=== PATIENT | female | born 1995 | race Asian ===

== ENCOUNTER 2023-07-08 18:06 | Inpatient (IN) | payer BC ==
[~2023-07-08 18:06] MED LIST: Bupivacaine 0.25% HCL 30 ML VIAL ONE
[2023-07-08] MEDS ORDERED: Promethazine HCl 25 MG/ML VIAL IM PRN (18:07)
[2023-07-08] MEDS ORDERED: Oxytocin 30 units/NS 500 ML 500 ML IV SCH (18:07)
[2023-07-08] MEDS ORDERED: hydrALAZINE 20 MG/ML VIAL SLOW IVP PRN (18:07)
[2023-07-08] MEDS ORDERED: Misoprostol 200 MCG TAB PR PRN (18:07)
[2023-07-08] MEDS ORDERED: Lactated Ringer's 1,000 ML IV SCH (18:07)
[2023-07-08] MEDS ORDERED: Carboprost 250 MCG/ML AMP IM PRN (18:07)
[2023-07-08] MEDS ORDERED: Acetaminophen 500 MG TAB PO PRN (18:07)
[2023-07-08] MEDS ORDERED: Diphenoxylate HCl/Atropine Tablet PO PRN ×2 (18:07)
[2023-07-08] MEDS ORDERED: Zolpidem Tartrate 5 MG TAB PO PRN (18:07)
[2023-07-08] MEDS ORDERED: Tranexamic Acid 1,000 MG/10 ML VIAL IVP PRN (18:07)
[2023-07-08] MEDS ORDERED: Lidocaine 1% (PF) 30 ML VIAL SC PRN (18:07)
[2023-07-08] MEDS ORDERED: Methylergonovine 0.2 MG/ML VIAL IM PRN (18:07)
[2023-07-08] MEDS ORDERED: HYDROcodone/Acetaminophen 5/325 mg Tablet PO PRN ×2 (18:07)
[2023-07-08 18:26] VITALS: BMI 23.8
[2023-07-08] MEDS: Misoprostol 100 MCG TAB VAG SCH (18:50)
[2023-07-08 19:22] LABS: Hematocrit 35.7 % (34.9-44.5); Hemoglobin 12.7 g/dL (12.0-15.5); Mean Corpuscular HGB CONC 35.6 g/dL (32.0-36.0); Mean Corpuscular Hemoglobin 31.8 pg (27.0-33.0); Mean Corpuscular Volume 89.3 fl (81.6-98.3); Platelet Count 237 10x3/uL (150-450); RBC Distribution Width 12.2 % (11.5-14.5); White Blood Cell (WBC) Count 9.2 10x3/uL (3.5-10.5)
[2023-07-08 19:45] LABS: HBSAg Index 0.22 S/CO (0-0.99); Hep B Surf Ag - L&D Non-Reactive S/CO (NonReactive)
[2023-07-08 19:46] LABS: Syphilis Antibody Nonreactive (Nonreactive); Syphilis Antibody Index 0.06 S/CO (<1.00 Non-Reactive)
[2023-07-09] MEDS: Ondansetron PF 4 MG/2 ML Vial IVP PRN (04:41)
[2023-07-09] MEDS: fentaNYL 50 mcg/mL 1 mL Vial SLOW IVP PRN (08:36)
[2023-07-09] MEDS: Oxytocin 30 units/NS 500 ML 500 ML IV SCH (09:16)
[2023-07-09] MEDS ORDERED: Moisturizing Cream (Eucerin) 113 GM JAR TOP PRN (09:45)
[2023-07-09] MEDS ORDERED: Naloxone HCl 0.4 mg/ml Vial IVP PRN ×2 (09:45)
[2023-07-09] MEDS ORDERED: diphenhydrAMINE 50 MG/ML VIAL IVP PRN (09:45)
[2023-07-09] MEDS ORDERED: Communication Order-Pharmacy FS SCH (09:45)
[2023-07-09] MEDS ORDERED: Acetaminophen 325 MG TAB PO PRN (09:45)
[2023-07-09] MEDS ORDERED: Lactated Ringer's 500 ML IV PRN (09:45)
[2023-07-09] MEDS ORDERED: Ondansetron PF 4 MG/2 ML Vial IVP PRN (09:45)
[2023-07-09] MEDS ORDERED: ePHEDrine Sulfate 50 MG/10 ML VIAL SLOW IVP PRN (09:45)
[2023-07-09] MEDS ORDERED: Promethazine HCl 25 MG/ML VIAL IM PRN (09:45)
[2023-07-09] MEDS: fentaNYL 2 mcg/Ropivacaine 0.2% Epidural 100 ML CADD EPIDURAL SCH (10:04)
[2023-07-09] MEDS: Ibuprofen 800 MG TAB PO PRN (17:05)
[2023-07-09] MEDS ORDERED: hydrALAZINE 20 MG/ML VIAL SLOW IVP PRN (17:07)
[2023-07-09] MEDS ORDERED: diphenhydrAMINE 25 MG CAP PO PRN (17:07)
[2023-07-09] MEDS ORDERED: Milk Of Magnesia 30 ML UDCUP PO PRN (17:07)
[2023-07-09] MEDS ORDERED: Preparation H Ointment 28 GM TUBE PR PRN (17:07)
[2023-07-09] MEDS ORDERED: Bisacodyl 10 MG SUPP PR PRN (17:07)
[2023-07-09] MEDS ORDERED: Lanolin Ointment 7 GM TUBE TOP PRN (17:07)
[2023-07-09] MEDS: fentaNYL/Ropivacaine Epidural 100 ML ONE (18:21)
[2023-07-09] MEDS: Ferrous Sulfate 325 MG TAB PO SCH (18:22)
[2023-07-09] MEDS: Boostrix 0.5 ML (Tdap) VIAL (>/=7 yrs of age) IM ONE (18:22)
[2023-07-09] MEDS: Docusate 100 MG CAP PO SCH (20:02)
[2023-07-09] MEDS: traMADol HCl 50 MG TAB PO PRN (20:02)
[2023-07-09] MEDS: Benzocaine-Menthol 82.5 ML CAN TOP PRN (21:37)
[2023-07-10] MEDS: Ibuprofen 800 MG TAB PO SCH (00:20)
[2023-07-10] MEDS: Levothyroxine Sodium 112 MCG TAB PO SCH (05:34)
[2023-07-10] MEDS: Prenatal Vitamin 1 TAB PO SCH (09:20)
[2023-07-11 07:46] VITALS: BP 126/75; TEMP 98.7
== END 2023-07-11 13:45 | disposition home or self-care (01) | DRG 768 ==
LOC: CSHLD 18:06 → CSHPP 07-09 17:39
PROVIDERS: ADMIT Obstetrics & Gynecology; ATTEND Obstetrics & Gynecology
PROC: 10E0XZZ Delivery of Products of Conception, External Approach (ICD-10-PCS; principal; 2023-07-09)
PROC: 0DQR0ZZ Repair Anal Sphincter, Open Approach (ICD-10-PCS; 2023-07-09)
DX: O36.5930 Maternal care for other known or suspected poor fetal growth, third trimester, not applicable or unspecified (principal); Z37.0 Single live birth; O70.20 Third degree perineal laceration during delivery, unspecified; O99.284 Endocrine, nutritional and metabolic diseases complicating childbirth; Z3A.39 39 weeks gestation of pregnancy; E03.9 Hypothyroidism, unspecified; Z79.890 Hormone replacement therapy
CPT/HCPCS: 36415; 51702; 85027; 86780; 86850; 86900; 86901; 87340; J0665; J2405; J2590; J3010